=== PATIENT | female | born 1980 | race Caucasian/White ===

== ENCOUNTER 2018-12-02 17:33 | Emergency (ER) | payer OTHER ==
[~2018-12-02] VITALS: Ht 170.2 cm; Wt 69.9 kg
[2018-12-02 17:33] VITALS: BP 115/54
[2018-12-02] MEDS ORDERED: SULF1TAB24 PO (17:53)
[2018-12-02] MEDS ORDERED: HYDR15CR20 TP (17:53)
[2018-12-02] MEDS ORDERED: TRIAMCINOLONE ACETONIDE 0.1% TOPICAL CREAM 15GM TUBE. TP STA (17:58)
[2018-12-02] MEDS ORDERED: MUPIROCIN 2% TOPICAL OINTMENT 22GM TUBE. TP STA (17:58)
--- NOTE | 2018-12-02 17:58 | PHYS DOC ---
Adult General Chief Complaint Chief Complaint: KNEE INJURY [facility] HPI Patient is a 38-year-old female who presents with report of left knee injury after falling a week ago. Patient states that she has been self treating at home with bacitracin ointment and last night her had put some hydrogen peroxi de on the wound because they felt that it was getting a little bit to read. Patient feels like she normally heals much faster. She is concerned about the possibility of infection setting in. She has not been seen for this injury prior to today. She denies any fever. She states that the pain in the knee is worsening with time.[] Review of Systems Review of Systems Constitutional: Denies fever or chills [] Respiratory: Denies cough or shortness of breath [] Cardiovascular: No additional information not addressed in HPI [] Musculoskeletal: Complains of left knee pain [] Integument: Positive abrasion left knee[] Physical Exam Physical Exam Constitutional: Well developed, well nourished, no acute distress, non-toxic appearance. [] Cardiovascular:Heart rate regular rhythm, no murmur [] Lungs & Thorax: Bilateral breath sounds clear to auscultation [] Skin: There are small to moderate-sized abrasion noted to the anterior aspect of the left knee with surrounding erythema and warmth. [] Extremities: Examination of left knee demonstrates soft tissue swelling with abrasion as noted above. [] EKG EKG [] Radiology/Procedures Radiology/Procedures [] Course & Med Decision Making Course & Med Decision Making Pertinent Labs and Imaging studies reviewed. (See chart for details) [] Dragon Disclaimer Dragon Disclaimer This electronic medical record was generated, in whole or in part, using a voice recognition dictation system. Departure Departure: Impression: Primary Impression: Knee abrasion Additional Impression: Contusion of knee, left Disposition: 01 HOME, SELF-CARE Condition: STABLE Referrals: PCP,NO (PCP) Patient Instructions: Abrasions, Knee Effusion, [id number] Scripts Hydrocortisone Valerate (HYDROCORTISONE VALERATE) 15 Gm Cream..g. 1 ANABEL TP BID for wound, #15 GM Prov: LUCÍA TIDWELL Jr. DO 12/02/18 Sulfamethoxazole/Trimethoprim (BACTRIM DS TABLET) 1 Each Tablet 1 TAB PO BID for infection, #20 TAB Prov: LUCÍA TIDWELL Jr. DO 12/02/18 Problem Qualifiers Primary Impression: Knee abrasion Encounter type: initial encounter Laterality: left Qualified Codes: S80.212A - Abrasion, left knee, initial encounter Additional Impression: Contusion of knee, left Encounter type: initial encounter Qualified Codes: S80.02XA - Contusion of left knee, initial encounter LUCÍA TIDWELL Jr. DO Dec 02, 2018 17:58
--- NOTE | 2018-12-02 18:58 | RAD ---
Left knee x-rays 3 views HISTORY: Fall, knee injury. FINDINGS: No fracture, dislocation or arthritic change. The soft tissues are unremarkable. IMPRESSION: No acute osseous injury. Electronically signed by: Mark Macedo MD (12/02/2018 6:55 PM) [facility]
== END 2018-12-02 18:30 | disposition home or self-care (01) ==
LOC: ER 17:33
DX: S80.02XA Contusion of left knee, initial encounter (principal); W18.39XA Other fall on same level, initial encounter; Y93.89 Activity, other specified; Y92.89 Other specified places as the place of occurrence of the external cause; Y99.8 Other external cause status
CPT/HCPCS: 73562; 99284